=== PATIENT | female | born 1980 | race African-American/Black ===

== ENCOUNTER 2016-09-05 15:34 | Outpatient (CLI) | payer BC ==
[~2016-09-05] VITALS: Ht 167.6 cm; Wt 75.0 kg
[2016-09-05 14:51] VITALS: BP 130/79; PULSE 86; RESP 20; Ht 167.6 cm; Wt 75.0 kg
[2016-09-05] MEDS ORDERED: ZOLP5TAB7 PO (15:38)
[2016-09-05] MEDS ORDERED: IBUP400T22 PO (15:38)
[2016-09-05] MEDS ORDERED: CLON0.5T4 PO (15:38)
--- NOTE | 2016-09-05 16:21 | PN ---
Date/Time of Note Date/Time of Note DATE: 09/05/16 TIME: 16:16 Outpatient Progress Note Chief Complaint Abdominal pain/PID/kidney stone HPI Abdominal pain/patient was recently seen in emergency room multiple times, and was recently admitted, patient had IUD removed, patient still has belly pain, no nausea vomiting, no fever chill, PID/patient was also diagnosed twice daily, patient was started on Keflex and Flagyl, patient has slight nausea with the medication Kidney stone/patient has bilateral nonobstructing kidney stone, no frequency urgency, no blood in the urine, no nausea or vomiting, patient has slight back discomfort,, Review of Systems Const: No Fever, no chills, no Wt. loss, no Fatigue, normal appetite, no diaphoresis. Eyes: No pain, no discharge, no redness, no visual change, no foreign body. ENT: No pain, no bleeding, no congestion, no sore throat, no dysphagia, no discharge or rhinitis. Lymph: No adenopathy, no tender nodes, no lymphedema. Resp: No SOB, no cough, no sputum, no wheezing, no chest pain. CV: No chest pain, no palpitaions, no KHOURY, no PND, no edema. GI: Normal appetite, lower abdominal pain, no nausea, no vomiting, no diarrhea, no blood, no constipation. : No frequency, no urgency, no dysuria, no hematuria, no flank pain, no discharge, no bleeding. Musc: Lower back pain, no neck pain, no knee pain, no restricted ROM. Skin: No rash, no skin lesions, no erythema, no laceration, no bruising, no pruritus. Neuro: No GONZALEZ, no dizziness, no syncope, no seizure, no focal-weakness. Endo: No polyuria, no polydypsia, no dry-skin, no temp-intolerance. Psych: No hallucinations, no depression, no anxiety, no suicidal ideation. Ext: No edema, no pain, no ulcer, no weakness. Physical Exam Vital Signs Date Time Temp Pulse Resp B/P Pulse Ox O2 Delivery O2 Flow Rate FiO2 09/05/16 14:51 98.5 86 20 130/79 100 Room Air General Appearance: A 36 year-old female who appears well-developed, well- nourished, in no acute distress. HEENT: Head normocephalic, atraumatic. Pupils equal, round, reactive to light and accommodate. Sclerae are no jaundice. Nasal turbinates pink without erythema or nasal discharge. Mucous membranes pink and moist without lesions. Oropharynx clear without any exudate or discharge. NECK: Supple. Trachea midline, No thyromegaly, No cervical lymphadenopathy, No mass, No carotid bruits, No JVD, Carotid pulses 2+ bilaterally. PULMONARY: Clear to auscultaion bilaterally, No retractions, Chest expansion symmetric bilaterally, no rales, no ronchi, no dulness on percussion. CARDIAC: Normal SI and S2, Regular rate and rythm, no murmur, gallop, or rub. GASTROINTESTINAL: Abdomen is soft, mild generalized discomfort,, Non Rigid, No distention, Positive bowel sounds x4 quadrants, Liver normal. Patient also has slight back discomfort, especially on the right side, SKIN: Warm, dry, no rash, no bruise, no echmosis. EXTREMITIES: Bilateral lower extremities normal, no edema, no phlabitus, pulse palpable, no contracture. MUSCULOSKELETAL: Spine Normal, Non-tender, Normal range of motion, No swelling, no deformity, no clubbing, or cyanosis, the patient has no edema to bilateral lower extremities, dorsalis pedis pulses palpable bilaterally. NEUROLOGIC: The patient is awake, alert, oriented, responding to yes/no questions appropriately, moving all extremities, cranial nerve intact, normal strenght, normal power, normal coordination, normal gait. Allergies Coded Allergies: No Known Drug Allergies (Verified Allergy, Unknown, 09/05/16) PMH Kidney stone/PID/status post IUD removal Social Hx No smoking no drinking, Family Hx Noncontributory Assessment/Plan Impression Abdominal pain PID Kidney stone Plan Patient has still abdominal discomfort, patient is taking Advil and Tylenol, not able to control the pain, Will start Nice 5/325 1 p.o. twice daily as needed for pain, #30 Patient continued to take Keflex and Flagyl, Patient advised to follow with the primary care physician, Medications Home Meds Reported Medications Ibuprofen* (Ibuprofen*) 400 Mg Tablet, 400 MG PO TID for PAIN LEVEL 1-5, TAB 09/05/16 Zolpidem Tartrate* (Zolpidem Tartrate*) 5 Mg Tablet, 5 MG PO QHS Y for INSOMNIA , #30 TAB 09/05/16 Clonazepam* (Clonazepam*) 0.5 Mg Tablet, 0.5 MG PO BID for ANXIETY, TAB 09/05/16 ELIAN SUÁREZ MD Sep 05, 2016 16:21
== END 2016-09-05 17:00 | disposition home or self-care (01) ==
LOC: DCC 15:34
PROVIDERS: ATTEND Internal Medicine
DX: R10.9 Unspecified abdominal pain (principal); N73.9 Female pelvic inflammatory disease, unspecified; N20.0 Calculus of kidney

== ENCOUNTER 2016-09-15 14:13 | Outpatient (CLI) | payer BC ==
[~2016-09-15] VITALS: Ht 167.6 cm; Wt 74.3 kg
[~2016-09-15 14:13] MED LIST: CLON0.5T4 PO; IBUP400T22 PO; ZOLP5TAB7 PO
[2016-09-15 14:23] VITALS: Ht 167.6 cm; Wt 74.3 kg
[2016-09-15 14:24] VITALS: BP 122/79; PULSE 105; RESP 18
--- NOTE | 2016-09-15 14:53 | PN ---
Date/Time of Note Date/Time of Note DATE: 09/15/16 TIME: 14:49 Outpatient Progress Note Chief Complaint Abdominal pain/PID/kidney stone HPI Abdominal pain/patient has a pain in the right upper quadrant pain, mild to moderate, patient also has nausea, and vomited 3 times yesterday and once today , patient had low-grade fever yesterday and today, at present normal temperature , No jaundice, no heartburn, PID/patient pelvic pain much improved, but still persist, no vaginal bleeding, no frequency urgency, Kidney stone/patient has nonobstructive kidney stone, no hematuria, patient still has some back pain, Review of Systems Const: No Fever, no chills, no Wt. loss, no Fatigue, normal appetite, no diaphoresis. Eyes: No pain, no discharge, no redness, no visual change, no foreign body. ENT: No pain, no bleeding, no congestion, no sore throat, no dysphagia, no discharge or rhinitis. Lymph: No adenopathy, no tender nodes, no lymphedema. Resp: No SOB, no cough, no sputum, no wheezing, no chest pain. CV: No chest pain, no palpitaions, no KHOURY, no PND, no edema. GI: Normal appetite, slight right upper quadrant pain, slight nausea, multiple time vomiting, no diarrhea, no blood, no constipation. : No frequency, no urgency, no dysuria, no hematuria, no flank pain, no discharge, no bleeding. Musc: Right side back pain, and flank pain, no neck pain, no knee pain, no restricted ROM. Skin: No rash, no skin lesions, no erythema, no laceration, no bruising, no pruritus. Neuro: No GONZALEZ, no dizziness, no syncope, no seizure, no focal-weakness. Endo: No polyuria, no polydypsia, no dry-skin, no temp-intolerance. Psych: No hallucinations, no depression, no anxiety, no suicidal ideation. Ext: No edema, no pain, no ulcer, no weakness. Physical Exam Vital Signs Date Time Temp Pulse Resp B/P Pulse Ox O2 Delivery O2 Flow Rate FiO2 09/15/16 14:24 98.5 105 18 122/79 98 Room Air General Appearance: A 36 year-old female who appears well-developed, well- nourished, in no acute distress. HEENT: Head normocephalic, atraumatic. Pupils equal, round, reactive to light and accommodate. Sclerae are no jaundice. Nasal turbinates pink without erythema or nasal discharge. Mucous membranes pink and moist without lesions. Oropharynx clear without any exudate or discharge. NECK: Supple. Trachea midline, No thyromegaly, No cervical lymphadenopathy, No mass, No carotid bruits, No JVD, Carotid pulses 2+ bilaterally. PULMONARY: Clear to auscultaion bilaterally, No retractions, Chest expansion symmetric bilaterally, no rales, no ronchi, no dulness on percussion. CARDIAC: Normal SI and S2, Regular rate and rythm, no murmur, gallop, or rub. GASTROINTESTINAL: Abdomen is soft, right flank and right sided back pain, mild to moderate,, Non Rigid, No distention, Positive bowel sounds x4 quadrants, Liver normal. SKIN: Warm, dry, no rash, no bruise, no echmosis. EXTREMITIES: Bilateral lower extremities normal, no edema, no phlabitus, pulse palpable, no contracture. MUSCULOSKELETAL: Spine Normal, Non-tender, Normal range of motion, No swelling, no deformity, no clubbing, or cyanosis, the patient has no edema to bilateral lower extremities, dorsalis pedis pulses palpable bilaterally. NEUROLOGIC: The patient is awake, alert, oriented, responding to yes/no questions appropriately, moving all extremities, cranial nerve intact, normal strenght, normal power, normal coordination, normal gait. Allergies Coded Allergies: No Known Drug Allergies (Verified Allergy, Unknown, 09/05/16) PMH No change Social Hx No change Family Hx No change Assessment/Plan Impression Abdominal pain PID improving Kidney stone nonobstructive Plan Patient still has abdominal pain, patient also has right flank pain, mild to moderate, but improving, feels like bruising, patient also has associated nausea vomiting, patient vomited 3 times yesterday and once today, and had low- grade fever, So we will get CBC and CMP, Patient to follow with [facility], Patient to follow with the primary care physician, Medications Home Meds Reported Medications Ibuprofen* (Ibuprofen*) 400 Mg Tablet, 400 MG PO TID for PAIN LEVEL 1-5, TAB 09/05/16 Zolpidem Tartrate* (Zolpidem Tartrate*) 5 Mg Tablet, 5 MG PO QHS Y for INSOMNIA , #30 TAB 09/05/16 Clonazepam* (Clonazepam*) 0.5 Mg Tablet, 0.5 MG PO BID for ANXIETY, TAB 09/05/16 ELIAN SUÁREZ MD Sep 15, 2016 14:53
== END 2016-09-15 16:49 | disposition home or self-care (01) ==
LOC: DCC 14:13
PROVIDERS: ATTEND Internal Medicine
DX: R10.11 Right upper quadrant pain (principal); N73.9 Female pelvic inflammatory disease, unspecified; N20.0 Calculus of kidney